=== PATIENT | female | born 1985 | race Caucasian/White ===

== ENCOUNTER → 2021-07-25 | Outpatient (CLI) | payer BC ==
--- NOTE | 2021-07-25 10:46 | CT ---
EXAMINATION TYPE: CT lumbar spine wo con DATE OF EXAM: 07/25/2021 9:02 AM COMPARISON: Outside lumbar spine x-ray June 05, 2021. Outside lumbar spine MRI images April 01. HISTORY: Low back pain for [address] DLP: 448.8 mGycm Automated exposure control for dose reduction was used. Unenhanced CT of the lumbar spine was performed. Bone and soft tissue window settings are submitted as well as coronal and sagittal reconstructions. There are 5 lumbar type vertebra redemonstrated. Mild disc space narrowing L5-S1 level again seen oth erwise vertebral body heights and disc space heights are maintained. Alignment stable and satisfactor y. Axial images at T12-L1, L1-L2, L2-L3, L3-L4, and L4-L5 levels all remain within normal limits. Axial images at the L5-S1 level redemonstrated broad-based central and left paracentral with foramina l extension disc protrusion on axial image 65. Spinal canal preserved. Bilateral neural foramina are patent. Disc herniation in close proximity to the anterior margin of the central left S1 nerve axial image 65 corresponding to sagittal image 32 which correlates with MRI axial image 12. Partial visualization of the anteverted uterus projecting just right of midline. There is 2 mm nonobs tructing calculus right kidney midpole level coronal image 21. There are smaller punctate scattered r ight renal calculi for reference 3 distinct calculi 1 to 2 mm coronal image 25 multiple level. IMPRESSION: Stable disc herniation L5-S1 level encroaches upon anterior aspect of the central left S1 nerve. Findings correlated with outside MRI. Nonobstructing tiny right renal calculi are noted.
== END | disposition home or self-care (01) ==
LOC: RADCTMAIN 08:36
PROVIDERS: ATTEND Orthopaedic Surgery
DX: M51.27 Other intervertebral disc displacement, lumbosacral region (principal)
CPT/HCPCS: 72131

== ENCOUNTER → 2021-09-26 | Outpatient (CLI) | payer BC ==
[2021-09-26 08:49] VITALS: BP 147/90; PULSE 85; RESP 18; TEMP 98.2
--- NOTE | 2021-09-26 08:53 | P.CON ---
Consult Note - . Consult date: 09/26/21 Assessment/Plan:: HISTORY OF PRESENT ILLNESS: 36 year old female as a referral from Dr. Casillas presents today with lower back pain due to disc herniations, facet arthropathy and left S1 encroachment for evaluation. Patient states her pain level is a 6/10 in intensity, dull and achy in the lower aspect of her lumbar spine and denies any shooting pain, tingling, numbness or weakness in the extremities. Admits that she only feels L hip shooting pain when she power walks for >1 mile around her neighborhood. Relieved with medications, topical patches, heat, physical therapy in Jun, 2021, repositioning and rest. PMH: Denies PSH: Denies SH: Recent ETOH overuse. No tobacco use. No illicit drug use. Works as a Le[employer]. FH: Non contributory All: Codeine Meds: See list REVIEW OF ORGAN SYSTEMS: CONSTITUTIONAL: No fevers or chills. No recent weight loss. HEENT: No visual acuity loss, eye pain, difficulties with hearing. No nosebleeds. No difficulty swallowing. RESPIRATORY: Denies any troubles with breathing or dyspnea on exertion. CARDIOVASCULAR: Denies any chest pain, palpitations, or recent heart attacks. GASTROINTESTINAL: Denies fatty food intolerance. Has change in bowel habits and gas bloat. GENITOURINARY: Denies any blood in urine. Has increased urinary frequency. NEUROLOGICAL: + numbness and tingling along the distal extremities. No seizure disorders or headaches. MUSCULOSKELETAL: + back pain SKIN: No skin cancer. No rash. PSYCHIATRIC: Denies current depression or suicidal thoughts. ENDOCRINE: Denies current thyroid disorders. Denies any blood sugar glucose intolerance. HEME/LYMPHATIC: Denies any lumps and bumps around the neck. History of deep venous thrombosis. ALLERGY/IMMUNOLOGY: No immunoglobulin therapy. No immune deficiencies. BREAST: Denies current breast lumps, pain or nipple discharge. Physical Examinations : Constitutional : Cooperative , not in acute distress . HEENT: Neck supple. No Lymphadenopathy. Normal thyroid size . Eyes no ptosis , no icterus, no photophobia . Hearing intact. Normal oropharynx. No Thrush. Respiratory : Chest clear to auscultations bilaterally. No wheezing. No rhonchi. Cardiovascular : Regular rate and rhythm , S1 / S2. No S3 . No S4. Gastrointestinal : Abdomen soft. No tenderness. Bowel sounds x 4. No organomegaly . Genitourinary : Deferred. Neurologic : Cranial nerve II to XII intact. No focal neurological deficits. Psychiatric : alert & oriented x 3. Matching mood & appropriate affect. Judgment & insight intact. Lymphatic No Lymphadenopathy. Musculoskeletal : Cervical Spine Motor strength in the deltoid and bi ceps: Normal right side. Normal Left side Motor strength biceps and the wrist extensors: Normal right side . Normal left side Motor strength in the triceps muscle: Normal right side. Normal left side Deep tendon reflexes: Normal at the biceps. Normal at Brachioradialis. Normal at triceps Cervical facet loading test: positive bilaterally Spurling test: positive bilaterally Neck distraction test: positive bilaterally Steffi sign: positive bilaterally Lumbar spine Motor strength lower extremities ,thigh and legs 5/5 Right side , 5/5 Left side Deep tendon reflexes : Normal Knee Jerk. Normal Ankle Jerk Vertebral body tenderness over L3, L4, L5 Lumbar facet Loading Test: positive Right / positive Left Range of motion of the lumbar spine Flexion 30 degrees, extension 10 degrees Straight Leg Raise test: Left/ Right positive at degree Anh test: positive right / positive left. Severe tenderness over the Sacroiliac joint on the Right / Left sides Gaenslen test: positive bilaterally Seated flexion test: positive bilaterally. Imaging: Computed tomography scan of the lumbar spine from July 25, 2021 reviewed. MRI of the lumbar spine from April 01, 2021 reviewed. Assessment/ Plan : Recommendation of LESI of the L4-L5 Will consider facet blocks of the medial branches when patient exhibits signs of radiculopathy on physical exam Risks, benefits of procedure discussed and patient verbalized understanding Denies aspirin or anticoagulant use All questions answered Patient denies any shooting pain, tingling, numbness, burning pain or weakness of the extremities I have spent greater than 50 minutes on patient care today. Dr Pinon was available by phone for the evaluation of this patient. The time was used to review the medical records including relevant urine studies and Prescription history (MAPs), review of the available imaging, evaluation and examination of the patient, coordination of care with the medical staff and if applicable referring physicians, as well as creation of the medical record PQRS Measure Charge Sheet Mode of Arrival: Ambulatory - Pain Location Lower Back Non-Pharmacological Interventions: Heat, Home Exercise, Inactivity, Physical Therapy, Position/Reposition PQRS Narrative: Blood Pressure 147/90 Pain Intensity [Lower Back] 6 Scale Used Numeric (1 - 10) Hx Alcohol Use (MH) Yes: Heavy Home Medications: Ambulatory Orders Escitalopram Oxalate [Lexapro] 20 mg PO DAILY 09/25/21 Lisdexamfetamine Dimesylate [Vyvanse] 20 mg PO DAILY 09/25/21 Xanax (Unknown Dose) 1 tab PO DIRECTED PRN 09/25/21
== END ==
LOC: PNWHC3 08:05
PROVIDERS: ATTEND Physician Assistant Medical
DX: M47.816 Spondylosis without myelopathy or radiculopathy, lumbar region (principal); M51.36 Other intervertebral disc degeneration, lumbar region; Z88.5 Allergy status to narcotic agent
CPT/HCPCS: 99202

== ENCOUNTER → 2021-10-31 | Day surgery (SDC) | payer BC ==
[2021-10-30 08:39] VITALS: BMI 24.7
[~2021-10-31] MED LIST: IOPAMIDOL M200 10 ML VIAL ONE; LACTATED RINGERS 1,000 ML IV SCH; LIDOCAINE 1% (10MG/ML) FOR IV START INTRADERMA PRN; methylPREDNISolone ACETATE 40 MG/ML 1 ML VIAL ONE
[2021-10-31 10:07] VITALS: TEMP 98.6
--- NOTE | 2021-10-31 10:37 | P.PCN ---
Date of Procedure: 10/31/21 Procedure(s) Performed: PREOPERATIVE DIAGNOSIS: 1- Lumbar Herniated Disc Diseases 2-Lumbar spondylosis with Facet arthropathy without myelopathy POSTOPERATIVE DIAGNOSIS: Same as preop diagnosis. PROCEDURE 1. Lumbar epidural steroid injection under fluoroscopic guidance at the L4-5 level. (Fluoroscopy imaging was available in radiology department) 2. Lumbar epidurogram. ANESTHESIA: Local with 1% lidocaine 3 ml only. EBL: Minimal PROCEDURE INDICATION: The patient with low back pain and radiculitis symptoms unresponsive to conservative treatment. Fluoroscopy was used to optimize visualization of the needle placement and to maximize safety. PROCEDURE DESCRIPTION / TECHNIQUE: The patient was seen and identified in the preoperative area. Risks, benefits, complications including but not limited to infections ,bleeding ,allergic reaction to the medications ,nerve damage and not complete pain releife , and alternatives were discussed with the patient. The patient agreed to proceed with the procedure and signed the consent,, and vital signs were stable. Patient was taken to the OR and time out was completed. The patient was placed in the prone position on procedure table and a pillow was placed under the abdomen to reduce lumbar lordosis. The lumbosacral area was prepped and draped in the usual sterile fashion.ere closely monitored during the procedure. Vital signs was monitered during the entire procedure. Using anterior-posterior fluoroscopy, the L4-5 interlaminar space was identified and the skin over this site was marked and then infiltrated with 1% lidocaine subcutaneously. Subsequently, a 20-gauge Tuohy epidural needle was inserted and advanced toward the epidural space using the ``Loss of resistance technique and guided by AP and lateral fluoroscopy. The correct needle position in the epidural space was verified with the injection of 2 mL of the water soluble contrast dye Isovue 200 contrast and observing an excellent epidurogram with the epidural spread of the dye, after negative aspiration for blood and CSF and in the absence of paresthesias. Again after negative aspiration, a 6 ml mixture containing 80 mg of Depo-medrol , and 2 ml of preservative free Normal Saline, and 2 ml of preservative free lidocaine 1% solution was injected and a washout of epidurogram was seen. Needle was withdrawn intact, skin was cleansed, and bandages were applied. COMPLICATIONS: None DISPOSITION / PLANS: The patient was placed in a supine position and transferred to the recovery area in a stable condition for observation. There was no evidence of lower extremity motor or sensory deficit after the procedure. Patient was discharged from the recovery room after meeting discharge criteria. Home discharge instructions were given to the patient by the staff. The patient was reexamined prior to discharge. The patient will schedule a follow up in the clinic in 2-4 weeks.
[2021-10-31 10:46] VITALS: RESP 16
[2021-10-31 10:57] VITALS: BP 125/88; PULSE 85
--- NOTE | 2021-10-31 11:04 | FL ---
Fluoroscopy INDICATION: Pain FINDINGS: Fluoroscopy time: 4 seconds. Images obtained: 1. IMPRESSIONS: 1. Documentation of fluoroscopy.
== END | disposition home or self-care (01) ==
LOC: ORPAIN 09:27
PROVIDERS: ATTEND Specialist
DX: M51.26 Other intervertebral disc displacement, lumbar region (principal); M51.16 Intervertebral disc disorders with radiculopathy, lumbar region; M47.26 Other spondylosis with radiculopathy, lumbar region
CPT/HCPCS: 62323; 81025; J1030; Q9966